=== PATIENT | female | born 1985 ===

== ENCOUNTER 2017-03-08 13:53 | Emergency (ER) | payer SELFPAY ==
[2017-03-08 14:46] VITALS: BP 110/73
--- NOTE | 2017-03-10 14:25 | ED Elopement Review ---
ED Pt Elopement review - Call Back decision Pt Call Back Decision: Pt to F/U with PMD
== END 2017-03-08 18:45 | disposition left against medical advice (07) ==
LOC: ED 13:53
DX: R07.9 Chest pain, unspecified (principal); Z53.21 Procedure and treatment not carried out due to patient leaving prior to being seen by health care provider
CPT/HCPCS: 93005; 93010